=== PATIENT | female | born 1930 | race American Indian/Alaskan Native ===

== ENCOUNTER 2016-08-28 15:17 | Emergency (ER) | payer MEDICARE ==
[2016-01-29 18:32] VITALS: BMI 27.4
[2016-08-28] MEDS ORDERED: Oxycodone/Acetaminophen 5/325 mg Tab PO ONE (22:00)
[2016-08-28] MEDS ORDERED: diaZEpam 10 mg/2 ml Inj IVP ONE (22:00)
[2016-08-28] MEDS ORDERED: Lidocaine 5% Patch TD ONE (22:00)
[2016-08-28] MEDS ORDERED: HYDROmorphone 1 mg/ml ISec IVP ONE (22:15)
[2016-08-28] MEDS ORDERED: Potassium Chloride 20 mEq ER Tab PO ONE (22:15)
[2016-08-28 22:19] LABS: ALB/GLOB RATIO 1.1 (1.1-1.8); ALBUMIN 3.7 g/dL (3.0-4.8)
[2016-08-28 22:21] LABS: URINE APPEARANCE CLEAR (CLEAR); URINE COLOR YELLOW (YELLOW)
[2016-08-28 22:21] LABS: HEMOGLOBIN 12.2 gm/dL (12.0-16.0); MEAN CELL VOLUME 84.3 fL (80.0-105.0); MEAN CORPUSCULAR HEMOGLOBIN 28.6 pg (25.0-35.0); MEAN PLATELET VOLUME 11.4 fl (7.0-11.0); PLATELET COUNT 202 10^3/uL (120.0-450.0); RBC 4.26 10^6/uL (3.5-6.1); RED CELL DISTRIBUTION WIDTH 14.1 % (11.5-14.5); WHITE BLOOD COUNT 9.7 10^3/ul (4.5-11.0)
[2016-08-28 22:22] LABS: PH,URINE 6.5 (4.7-8.0); URINE BILIRUBIN NEGATIVE (NEGATIVE); URINE BLOOD TRACE (NEGATIVE); URINE GLUCOSE (UA) NEGATIVE (NEGATIVE); URINE LEUKOCYTE ESTERASE NEGATIVE Leu/uL (NEGATIVE); URINE NITRATE NEGATIVE (NEGATIVE); URINE PROTEIN TRACE mg/dL (<30 mg/dL); URINE UROBILINOGEN 0.2 E.U./dL (<1 E.U./dL)
[2016-08-28 22:23] LABS: URINE BACTERIA FEW (NEG)
[2016-08-28 22:26] LABS: ATYPICAL LYMPHOCYTE 2 % (0.0-0.0); BAND 0 % (0-2); LYMPHOCYTE 60 % (22.0-35.0); MONOCYTE 6 % (1.0-6.0); NEUTROPHIL 32 % (50.0-70.0)
--- NOTE | 2016-08-28 22:41 | CT ---
PROCEDURE: CT Lumbar Spine without contrast HISTORY: COMPARISON: None. TECHNIQUE: Axial computed tomography images were obtained of the lumbar spine without the use of intravenous contrast. Coronal and sagittal reformatted images were created and reviewed. Radiation dose: Total exam DLP = mckeon mGy-cm. This CT exam was performed using one or more of the following dose reduction techniques: Automated exposure control, adjustment of the mA and/or kV according to patient size, and/or use of iterative reconstruction technique. FINDINGS: VERTEBRAE: Unremarkable. No fracture. Normal alignment. DISCS/SPINAL CANAL/NEURAL FORAMINA: L1-2: Unremarkable. L2-3: Disc degenerative changes and virtual absence of the normal disc space. These appear to be chronic changes. Proliferative common degenerative changes producing canal stenosis primarily related to facet arthropathy. L3-4: Mild disc degenerative changes, vacuum disc phenomenon. Canal stenosis primarily related to severe facet arthropathy. L4-5: All moderate disc degenerative changes, vacuum disc phenomenon, canal stenosis. Facet arthropathic changes identified. Grade 1 anterolisthesis. . L5-S1: Severe disc degenerative changes. Central bar formation PARASPINAL SOFT TISSUES: Unremarkable. OTHER FINDINGS: Trace bilateral pleural effusions and dependent atelectasis. Calcified nonaneurysmal abdominal aorta. IMPRESSION: Multilevel degenerative changes described above. Canal stenosis identified at L2-3, L3-4 and L4-5 primarily a function of severe facet arthropathy. No acute findings.
--- NOTE | 2016-08-28 22:41 | CT ---
PROCEDURE: CT left hip HISTORY: Pain common no antecedent history of trauma COMPARISON: None TECHNIQUE: 2.5 mm axial acquisition and display. Coronal and sagittal reconstructions. Dose report (mGy-cm): 797.48 FINDINGS: Moderate degenerative changes left hip without evidence of subluxation, dislocation or protrusio. No acute fracture. Loose bodies within the joint space inferior to the femoral head IMPRESSION: Degenerative changes (moderate) without acute pathologic process.
--- NOTE | 2016-08-30 13:21 | US ---
PROCEDURE: Left lower extremity venous US HISTORY: Leg pain and swelling. Evaluate for DVT. PHYSICIAN(S): Wilton Zepeda MD. TECHNIQUE: Duplex sonography and color-flow Doppler with graded compression were used to evaluate the deep venous system of the left lower extremity. FINDINGS: The visualized deep venous system of the left lower extremity is sonographically normal and compressible. Normal wave forms and augmentation are seen. There is no sonographic evidence for deep venous thrombosis in the visualized segments of the left lower extremity. IMPRESSION: 1. No sonographic evidence for deep venous thrombosis in the visualized segments of the left lower extremity.
== END 2016-08-28 20:10 | disposition home or self-care (01) ==
LOC: ED 15:17
DX: M48.06 Spinal stenosis, lumbar region (principal); M54.9 Dorsalgia, unspecified; E87.6 Hypokalemia; I10 Essential (primary) hypertension; E78.5 Hyperlipidemia, unspecified; Z95.0 Presence of cardiac pacemaker